=== PATIENT | male | born 1985 ===

== ENCOUNTER 2016-12-09 18:45 | Emergency (ER) | payer OTHER ==
[2016-12-09 18:50] VITALS: BP 111/71; PULSE 60; RESP 22; TEMP 97.9; O2SAT 100
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
--- NOTE | 2016-12-10 07:45 | RAD ---
HISTORY: [facility] COMPARISON: No prior FINDINGS: BONES: Normal. No fracture. JOINTS: Normal. No osteoarthritis. SOFT TISSUE: Normal. OTHER FINDINGS: None . IMPRESSION: Normal Bone Xray.
--- NOTE | 2016-12-10 07:57 | RAD ---
PROCEDURE: Right Knee Radiographs. HISTORY: [facility] COMPARISON: None. FINDINGS: BONES: There is a complex lucent lesion in the distal femur with sclerosis along the posterior margin measuring 6.0 x 3.3 centimeters. No fracture is observed. JOINTS: Tricompartmental osteoarthritis with marginal spur formation. JOINT EFFUSION: None. OTHER FINDINGS: None. IMPRESSION: Complex lucent lesion distal femur for which correlation with MRI with contrast is recommended. Tricompartmental osteoarthritis.
--- NOTE | 2016-12-10 07:58 | RAD ---
HISTORY: [facility] COMPARISON: No prior FINDINGS: BONES: Normal. No fracture. JOINTS: Normal. No osteoarthritis. SOFT TISSUE: Normal. OTHER FINDINGS: None . IMPRESSION: Normal Bone Xray. See radiographic report of the right knee.
--- NOTE | 2016-12-10 08:19 | CT ---
PROCEDURE: CT HEAD WITHOUT CONTRAST. HISTORY: [facility] w/ +LOC COMPARISON: None available. TECHNIQUE: Axial computed tomography images were obtained through the head/brain without intravenous contrast. Radiation dose: Total exam DLP = 875 mGy-cm. This CT exam was performed using one or more of the following dose reduction techniques: Automated exposure control, adjustment of the mA and/or kV according to patient size, and/or use of iterative reconstruction technique. FINDINGS: HEMORRHAGE: No intracranial hemorrhage. BRAIN: No mass effect or edema. No atrophy or chronic microvascular ischemic changes. VENTRICLES: Unremarkable. No hydrocephalus. CALVARIUM: Unremarkable. PARANASAL SINUSES: Unremarkable as visualized. No significant inflammatory changes. MASTOID AIR CELLS: Unremarkable as visualized. No inflammatory changes. OTHER FINDINGS: None. IMPRESSION: Normal CT of the Head.
== END 2016-12-09 20:40 | disposition home or self-care (01) ==
LOC: H.ER 18:45
DX: S80.01XA Contusion of right knee, initial encounter (principal); M79.604 Pain in right leg; M25.559 Pain in unspecified hip; T14.8 Other injury of unspecified body region; V43.52XA Car driver injured in collision with other type car in traffic accident, initial encounter; Y92.410 Unspecified street and highway as the place of occurrence of the external cause; M17.9 Osteoarthritis of knee, unspecified

== ENCOUNTER 2018-09-14 21:33 | Emergency (ER) | payer MEDICAID, OTHER ==
[2018-09-14] MEDS ORDERED: Sodium Chloride 0.9% 1,000 ML IV STA (21:46)
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
[2018-09-14 22:13] VITALS: TEMP 99.4
[2018-09-14 22:17] LABS: BASO # 0.1 K/uL (0.0-0.2); EOS # 0.5 K/uL (0.0-0.7); EOS % 6.2 % (0.0-4.0); HEMOGLOBIN 15.6 g/dL (12.0-18.0); LYMPH # 2.6 K/uL (1.0-4.3); LYMPH % 32.8 % (20.0-40.0); MEAN CELL VOLUME 80.2 fl (80.0-94.0); MEAN CORPUSCULAR HEMOGLOBIN 27.6 pg (27.0-31.0); MEAN CORPUSCULAR HGB CONC 34.4 g/dL (33.0-37.0); MEAN PLATELET VOLUME 9.8 fl (7.2-11.7); MONO # 0.7 K/uL (0.0-0.8); MONO % 8.9 % (0.0-10.0); NEUT # 4.1 K/uL (1.8-7.0); NEUT % 51.1 % (50.0-75.0); NRBC % 0.2 % (0.0-0.0); RBC 5.66 Mil/uL (4.40-5.90); RED CELL DISTRIBUTION WIDTH 13.7 % (11.5-14.5); WHITE BLOOD COUNT 7.9 K/uL (4.8-10.8)
[2018-09-14 22:27] LABS: ALB/GLOB RATIO 1.4 (1.0-2.1); ALBUMIN 4.6 g/dL (3.5-5.0); ALT/SGPT 16 U/L (21-72); AST/SGOT 29 U/L (17-59); BLOOD UREA NITROGEN 13 mg/dl (9-20); CALCIUM 8.7 mg/dL (8.4-10.2); GFR NON-AFRICAN AMERICAN > 60
[2018-09-14 22:32] VITALS: BP 154/85
[2018-09-14 23:13] VITALS: PULSE 152; RESP 18; O2SAT 97
--- NOTE | 2018-09-16 01:22 | CARD ---
APPROVED REPORT Date of service: 09/14/2018 EKG Measurement Heart [id number] <Conclusion> Sinus tachycardia Otherwise normal ECG
== END 2018-09-14 23:07 | disposition left against medical advice (07) ==
LOC: H.ER 21:33
DX: R56.9 Unspecified convulsions (principal); F41.9 Anxiety disorder, unspecified; R00.0 Tachycardia, unspecified
CPT/HCPCS: 80053; 80320; 82948; 84484; 85025; 93005; 99284; J7030